=== PATIENT | male | born 1990 | race Caucasian/White ===

== ENCOUNTER 2019-02-11 14:03 | Emergency (ER) | payer OTHER ==
[~2019-02-11] VITALS: Ht 180.3 cm; Wt 63.6 kg
[2019-02-11] MEDS ORDERED: TETANUS/DIPHTHERIA TOX ADSORB ADULT 0.5ML SYR/VIAL (90714) IM ONE (15:30)
--- NOTE | 2019-02-11 16:15 | REP ---
HISTORY: Pain to the first digit of the left hand after trauma. There is a bandage that obscures the bony detail of the tuft. I cannot rule out a tuft fracture. The exam is otherwise unremarkable. Electronically Signed by Manjinder Michael DO 02/11/2019 05:02 P
[2019-02-11] MEDS ORDERED: KETO10TAB PO (16:44)
[2019-02-11] MEDS ORDERED: AMOX875T2 PO (16:44)
[2019-02-11 16:57] VITALS: BP 131/73
== END 2019-02-11 17:10 | disposition home or self-care (01) ==
LOC: M ED 14:03
DX: S61.102A Unspecified open wound of left thumb with damage to nail, initial encounter (principal); W29.0XXA Contact with powered kitchen appliance, initial encounter; Y92.89 Other specified places as the place of occurrence of the external cause; Y99.0 Civilian activity done for income or pay; F17.210 Nicotine dependence, cigarettes, uncomplicated; Z88.2 Allergy status to sulfonamides

== ENCOUNTER 2021-05-24 13:57 | Emergency (ER) | payer OTHER, SELFPAY ==
[~2021-05-24] VITALS: Ht 182.9 cm; Wt 59.8 kg
[2021-05-24 13:57] VITALS: BP 134/85
[~2021-05-24 13:57] MED LIST: AMOX875T2 PO; KETO10TAB PO
== END 2021-05-24 16:05 | disposition left against medical advice (07) ==
LOC: M ED 13:57
DX: Z53.21 Procedure and treatment not carried out due to patient leaving prior to being seen by health care provider (principal)